=== PATIENT | female | born 1930 | race Caucasian/White ===

== ENCOUNTER 2017-08-21 14:41 | Inpatient (IN) | payer OTHER, MEDICARE ==
[~2017-08-21] VITALS: Ht 165.1 cm; Wt 64.9 kg
[~2017-08-21 14:41] MED LIST: COZ50 PO; FERR325E14 PO; FLOR250 PO; GABA100C PO; GLIP5TAB13 PO; METF1000 PO; METR500T1 PO; MIC5 PO; NOVR SUBQ; OMEP40EC1 PO; ORE25 PO; PRAV40TA1 PO
[2017-08-21 14:42] VITALS: BP 120/83
--- NOTE | 2017-08-21 14:55 | NUR ---
Patient wheelchair assisted to Bed1
[2017-08-21] MEDS ORDERED: NACL 0.9% 1,000 ML IV ONE ×3 (15:00→17:00)
--- NOTE | 2017-08-21 15:00 | NUR ---
PATIENT BIB FAMILY C/O GENERALIZED WEAKNESS x TODAY. FAMILY STATES THAT THEY OBSERVE PATIENT FEELING WEAK SINCE THIS MORNING. DENIES NVD. HX: HTN AND DM . AAOX4 WITH EVEN AND STEADY GAIT; LUNGS CLEAR BL; HR EVEN AND REGULAR; PT DENIES ANY FEVER, CP, SOB, OR COUGH AT THIS TIME; SKIN IS PINK/WARM/DRY; DENIES PAIN; VSS; BS 536 MG/DL.PATIENT POSITIONED FOR COMFORT; HOB ELEVATED; BEDRAILS UP X2; BED DOWN. ER MD MADE AWARE OF PT STATUS.
--- NOTE | 2017-08-21 15:20 | NUR ---
Patient being evaluated by physician at bedside.
[2017-08-21 15:31] LABS: BASOPHILS # (AUTO) 0.1 K/uL (0.00-0.22); BASOPHILS % (AUTO) 1.5 % (0.0-2.0); EOSINOPHILS # (AUTO) 0.3 K/uL (0-0.4); EOSINOPHILS % (AUTO) 3.7 % (0.0-4.0); HEMATOCRIT 31.8 % (36-48); HEMOGLOBIN 10.6 g/dL (12.0-16.0); LYMPHOCYTES # (AUTO) 2.2 K/uL (2.5-16.5); LYMPHOCYTES % (AUTO) 32.3 % (20.5-51.1); MEAN CORPUSCULAR HEMOGLOBIN 31 pg (27-31); MEAN CORPUSCULAR HGB CONC 33 g/dL (33-37); MEAN CORPUSCULAR VOLUME 94.1 fL (80-94); MONOCYTES # (AUTO) 0.3 K/uL (0.8-1.0); MONOCYTES % (AUTO) 4.1 % (1.7-9.3); NEUTROPHILS # (AUTO) 4.1 K/uL (1.8-7.7); NEUTROPHILS % (AUTO) 58.4 % (42.2-75.2); PLATELET COUNT (AUTO) 245 K/uL (140-450); RED BLOOD CELL COUNT(AUTO) 3.38 MIL/uL (4.20-5.40); RED CELL DISTRIBUTION WIDTH 12.1 % (11.6-13.7)
[2017-08-21 15:45] LABS: ACETONE, SERUM NEGATIVE (NEGATIVE)
[2017-08-21 15:52] LABS: ALBUMIN 2.9 g/dL (3.4-5.0); ANION GAP 13.4 (8-16); ASPARTATE AMINOTRANSFERASE 14 U/L (15-37); CARBON DIOXIDE 26.7 mmol/L (21-32); CHLORIDE 89 mmol/L (98-107); CREATININE 1.3 mg/dL (0.6-1.3); POTASSIUM 4.1 mmol/L (3.5-5.1); SODIUM SERUM 125 mmol/L (136-145); TOTAL BILIRUBIN 0.2 mg/dL (0.0-1.0); UREA NITROGEN, BLOOD 17 mg/dL (7-18)
[2017-08-21 15:54] LABS: GLUCOSE 577 mg/dL (74-106)
[2017-08-21] MEDS ORDERED: cefTRIAXone 1,000 MG VIAL ONE (16:33)
[2017-08-21 16:42] LABS: BILIRUBIN,URINE NEGATIVE (NEGATIVE); BLOOD, URINE NEGATIVE (NEGATIVE); LEUKOCYTE ESTERASE ,URINE NEGATIVE (NEGATIVE); NITRITE, URINE NEGATIVE (NEGATIVE); UGLUCOSE 3+ (NEGATIVE)
[2017-08-21 16:43] LABS: APPEARANCE,URINE CLEAR (CLEAR); COLOR,URINE STRAW (YELLOW)
--- NOTE | 2017-08-21 17:00 | NUR ---
PT IS RESTING IN BED, NO S/S OF DISTRESS, DENIES PAIN, VSS.
[2017-08-21] MEDS ORDERED: NACL 0.9% 1,000 ML IV SCH (17:36)
[2017-08-21] MEDS ORDERED: ONDANSETRON 4 MG/2 ML VIAL IVP PRN (17:40)
[2017-08-21] MEDS ORDERED: HYDROcodone/APAP 5/325 MG 1 TAB TAB PO PRN ×2 (17:40)
[2017-08-21] MEDS ORDERED: ACETAMINOPHEN 325 MG TAB PO PRN (17:40)
[2017-08-21] MEDS ORDERED: DEXTROSE 50% 50 ML SYR IVP PRN (17:45)
--- NOTE | 2017-08-21 18:20 | NUR ---
Patient will be admitted TELE. Will go to room 124B. Belongings list completed. Report to ANGELY VILLALOBOS AT BEDSIDE.
--- NOTE | 2017-08-21 18:20 | NUR ---
PATIENT ARRIVED ON UNIT VIA GURNEY FROM ER. PATIENT ALERT AND ABLE TO MAKE NEEDS KNOWN. GIBRALTARIAN SPEAKING. FAMILY AT BEDSIDE. PATIENT INCONTINENT CHANGED ROGER AND GOWN UPON ARRIVAL. PATIENT NOTED FALL RISK . IV TO RFA 22G. PATENT AND INTACT. CONTINUES WITH NS BOLUS. TO START NS @50ML/HR ONCE BOLUS COMPLETE.VSS. 133/77,97.4,70,O2 SAT 99% ON RA. RR 18, 0/10 PAIN. NO ACUTE DISTRESS NOTED. RESP EVEN AND UNLABORED. LUNG SOUNDS CLEAR. BOWEL SOUNDS ACTIVE X 4 .BLOOD GLUCOSE 330 UPON ARRIVAL . CALLED AND SPOKE TO DR SHEN REGARDING DIET ORDER FOR [facility] DIET. MRSA SWAB COLLECTED.FALL RISK PRECAUTIONS INITIATED. BED ALARM ON . DISCUSSED PLAN OF CARE WITH FAMILY VERBALIZED UNDERSTANDING AND AGREEMENT. CALL LIGHT WITHIN REACH. WILL CONT TO MONITOR.
[2017-08-21 18:28] LABS: CHOL/HDL RATIO 2.6 (1-4.5); THYROID STIMULATING HORMONE 2.49 uIU/mL (0.34-3.74)
[2017-08-21 18:49] LABS: ANION GAP 14.6 (8-16); CARBON DIOXIDE 25.3 mmol/L (21-32); CHLORIDE 98 mmol/L (98-107); CREATININE 1.1 mg/dL (0.6-1.3); GLUCOSE 362 mg/dL (74-106); POTASSIUM 3.9 mmol/L (3.5-5.1); SODIUM SERUM 134 mmol/L (136-145); UREA NITROGEN, BLOOD 14 mg/dL (7-18)
--- NOTE | 2017-08-21 19:30 | NUR ---
ENDORSED REPORT TO [employer] DIVISION MANAGER NURSE AT BEDSIDE FOR CONTINUITY OF CARE. PATIENT STABLE
[2017-08-21 20:00] VITALS: BP 118/68
--- NOTE | 2017-08-21 20:00 | NUR ---
A NEW IV IS INSERTED ON; LEFT HAND GAUGE #24
[2017-08-21] MEDS: BLOOD GLUCOSE MONITORING 1 DEV DEV FS SCH (20:40)
[2017-08-21] MEDS: INSULIN LISPRO SLIDING SCALE 100 UNITS/ML VIAL SUBQ PRN (20:40)
--- NOTE | 2017-08-21 21:00 | NUR ---
BLOOD SUGAR TEST 349COVERAGE WITH 8 UNITS SUB Q HUMALOG ON LEFT ARM FOLLOWING PROTOCOL
--- NOTE | 2017-08-21 21:30 | NUR ---
DREA MARIE IS HERE AND SEE THE PT
[2017-08-21] MEDS: GABAPENTIN 100 MG CAP PO SCH (22:24)
[2017-08-21] MEDS ORDERED: LORazepam 2 MG/ML VIAL IVP PRN (23:00)
--- NOTE | 2017-08-21 23:15 | NUR ---
PT CONFUSED PULL OUT IV AND A NEW IV IS INSERTED ON RT HAND GAUGE # 24
--- NOTE | 2017-08-21 23:20 | NUR ---
PT CONFUSED AND AGITATED DR SHEN POLO COACH WAS NOTIFY PT CONDITION AND ORDERS TO FOLLOW
[2017-08-22] VITALS: BP 93/50
[2017-08-22 00:48] LABS: ANION GAP 12.7 (8-16); CHLORIDE 105 mmol/L (98-107); CREATININE 0.9 mg/dL (0.6-1.3); GLUCOSE 66 mg/dL (74-106); POTASSIUM 3.7 mmol/L (3.5-5.1); SODIUM SERUM 140 mmol/L (136-145); UREA NITROGEN, BLOOD 12 mg/dL (7-18)
[2017-08-22] MEDS: BLOOD GLUCOSE MONITORING 1 DEV DEV FS SCH ×3 (01:15→08:09)
--- NOTE | 2017-08-22 01:30 | NUR ---
PT RESTING ON BED REPOSITIONED Q2H IV ON RT HAND INFUSING WELL BLOOD SUGAR TEST 71
--- NOTE | 2017-08-22 03:15 | NUR ---
PT CONFUSED TRYING TO GET OUT OF BED LINEN CHANGED PT INCONTINENT IV ON RT HAND INFUSING WELL ON TELEMETRY SR
[2017-08-22 04:00] VITALS: BP 118/68
--- NOTE | 2017-08-22 04:15 | NUR ---
PT RESTING ON BED CONFUSED BLOOD SUGAR TEST 139
--- NOTE | 2017-08-22 06:17 | NUR ---
PT CONFUSED FOLLOW COMANDS ON TELEMETRY SR REPOSITIONED Q2H, LINEN CHANGED
--- NOTE | 2017-08-22 07:20 | NUR ---
RECEIVED REPORT FROM MEDICAL AFFAIRS SPECIALIST RN. PATIENT IS CONFUSED AND NEEDS FREQUENT REINFORCEMENT. NO SIGNS AND SYMPTOMS OF ACUTE DISTRESS NOTED AT THIS TIME. HAS IV TO THE RIGHT HAND 24G, INFUSING NS AT 50 ML/HR. INFUSING WELL. HAS SOFT MITTENS ON DUE TO PULLING OUT IV A FEW TIMES. DISCUSSED PLAN OF CARE WITH PATIENT AND REINFORCEMENT WAS NEEDED. FALL PRECAUTIONS IN PLACE, BED ALARM ON, BED IN LOWEST POSITION, SIDE RAILS UP X3, CALL LIGHT WITHIN REACH. WILL CONTINUE TO MONITOR.
[2017-08-22 07:26] LABS: BASOPHILS # (AUTO) 0.3 K/uL (0.00-0.22); BASOPHILS % (AUTO) 4.2 % (0.0-2.0); EOSINOPHILS # (AUTO) 0.3 K/uL (0-0.4); EOSINOPHILS % (AUTO) 3.3 % (0.0-4.0); HEMATOCRIT 33.8 % (36-48); HEMOGLOBIN 11.4 g/dL (12.0-16.0); LYMPHOCYTES # (AUTO) 2.5 K/uL (2.5-16.5); LYMPHOCYTES % (AUTO) 31.3 % (20.5-51.1); MEAN CORPUSCULAR HEMOGLOBIN 32 pg (27-31); MEAN CORPUSCULAR HGB CONC 34 g/dL (33-37); MEAN CORPUSCULAR VOLUME 94.7 fL (80-94); MONOCYTES # (AUTO) 0.3 K/uL (0.8-1.0); NEUTROPHILS # (AUTO) 4.7 K/uL (1.8-7.7); NEUTROPHILS % (AUTO) 57.2 % (42.2-75.2); PLATELET COUNT (AUTO) 236 K/uL (140-450); RED BLOOD CELL COUNT(AUTO) 3.57 MIL/uL (4.20-5.40); RED CELL DISTRIBUTION WIDTH 12.3 % (11.6-13.7); WHITE BLOOD COUNT (AUTO) 8.1 K/uL (4.8-10.8)
[2017-08-22 07:41] LABS: ALBUMIN 2.9 g/dL (3.4-5.0); ASPARTATE AMINOTRANSFERASE 15 U/L (15-37); CARBON DIOXIDE 27.4 mmol/L (21-32); CHLORIDE 101 mmol/L (98-107); CREATININE 0.9 mg/dL (0.6-1.3); GLUCOSE 194 mg/dL (74-106); POTASSIUM 3.4 mmol/L (3.5-5.1); SODIUM SERUM 136 mmol/L (136-145); TOTAL BILIRUBIN 0.5 mg/dL (0.0-1.0); UREA NITROGEN, BLOOD 10 mg/dL (7-18)
[2017-08-22 07:42] LABS: ANION GAP 12.7 (8-16); CARBON DIOXIDE 25.7 mmol/L (21-32); CHLORIDE 101 mmol/L (98-107); CREATININE 0.9 mg/dL (0.6-1.3); GLUCOSE 198 mg/dL (74-106); POTASSIUM 3.4 mmol/L (3.5-5.1); SODIUM SERUM 136 mmol/L (136-145); UREA NITROGEN, BLOOD 11 mg/dL (7-18)
[2017-08-22 08:00] VITALS: BP 130/65
[2017-08-22] MEDS ORDERED: SULF-58 PO (08:15)
[2017-08-22] MEDS ORDERED: PRAV40TA1 PO (08:15)
--- NOTE | 2017-08-22 08:36 | NUR ---
PATIENT HAS BEEN SCREENED AND CATEGORIZED MODERATE RISK. PATIENT WILL BE SEEN WITHIN 3-5 DAYS OF ADMISSION. 08/24/17 TO 08/26/[address], [facility]
[2017-08-22] MEDS: GABAPENTIN 100 MG CAP PO SCH (08:47)
[2017-08-22] MEDS: INSULIN LISPRO SLIDING SCALE 100 UNITS/ML VIAL SUBQ PRN (08:53)
--- NOTE | 2017-08-22 10:00 | NUR ---
I WAS STANDING NEXT TO DR IBANEZ WHEN HE CALLED PATIENTS DAUGHTER. PER DR IBANEZ HE SPOKE WITH PATIENTS DAUGHTER MIGUEL, AND LET HER KNOW THAT SHE IS STABLE TO BE DISCHARGED. HE ASKED INFORMED HER THAT SHE CAN TAKE HER HOME MEDICATIONS, AND THAT HE ADJUSTED ONE OF THE MEDICATIONS. HE ASKED MIGUEL IF SHE WANTED FRONT OFFICE MANAGER TO GET INVOLVED IN PLACING HER IN HOSPICE. PATIENTS DAUGHTER REFUSES THE SERVICES AT THIS TIME. WILL FOLLOW THROUGH WITH DISCHARGE ORDER.
--- NOTE | 2017-08-22 10:45 | NUR ---
DISCHARGE ORDER IS IN PLACE. DAUGHTER IS AT THE BEDSIDE AND EXPLAINED DISCHARGE INSTRUCTIONS TO HER. SHE STATED THAT SHE IS TAKING HER MOTHER TO HER PRIMARY CARE PHYSICIAN TODAY. EXPLAINED SIGNS AND SYMPTOMS TO LOOK OUT FOR AND EXPLAINED INSULIN SLIDING SCALE. SHE VERBALIZED UNDERSTANDING. DISCONTINUED PATIENTS NORMAL SALINE FLUID AND IV SITE AT THIS TIME. SITE IS CLEAN AND DRY, CATHETER INTACT. ALL BELONGINGS HAVE BEEN COLLECTED. PATIENT HAS NO SIGNS AND SYMPTOMS OF ACUTE DISTRESS NOTED AT THIS TIME. DAUGHTER BROUGHT PATIENTS WHEEL CHAIR, WILL WALK OUT WITH THEM.
--- NOTE | 2017-08-25 07:51 | NUR ---
RETRO FAXED ER REPORT, H&P AND DISCHARGE SUMMARY TO [facility] [phone] PHONE TRINA [phone]
== END 2017-08-22 10:45 | disposition home or self-care (01) | DRG 420 ==
LOC: MED 14:41 → MTU 17:42
PROVIDERS: ADMIT Hospitalist; ATTEND Hospitalist
DX: E11.00 Type 2 diabetes mellitus with hyperosmolarity without nonketotic hyperglycemic-hyperosmolar coma (NKHHC) (principal); E11.65 Type 2 diabetes mellitus with hyperglycemia; F03.90 Unspecified dementia, unspecified severity, without behavioral disturbance, psychotic disturbance, mood disturbance, and anxiety; E44.1 Mild protein-calorie malnutrition; E86.9 Volume depletion, unspecified; N39.0 Urinary tract infection, site not specified; E86.0 Dehydration; I10 Essential (primary) hypertension; E78.5 Hyperlipidemia, unspecified; Z91.19 Patient's noncompliance with other medical treatment and regimen; Z79.4 Long term (current) use of insulin
CPT/HCPCS: 36415; 36600; 71045; 80048; 80053; 81003; 82009; 82550; 82553; 82803; 82948; 83036; 83605; 83874; 83880; 84443; 84484; 85025; 85610; 85730; 87040; 87081; 87086; 93005; 96361; 96365; 99285; C1758; J0696; J1644; J1815; J2060; J7030; J7060; Q0092

== ENCOUNTER 2017-12-01 18:24 | Inpatient (IN) | payer OTHER, MEDICARE ==
[~2017-12-01] VITALS: Ht 152.4 cm; Wt 54.4 kg
[~2017-12-01 18:24] MED LIST changes: -METF1000 PO; -METR500T1 PO; -MIC5 PO; -OMEP40EC1 PO; -ORE25 PO; +SULF-58 PO
[2017-12-01 18:41] VITALS: BP 123/73
[2017-12-01] MEDS ORDERED: NACL 0.9% 1,000 ML IV ONE ×2 (18:50→20:35)
[2017-12-01] MEDS ORDERED: ONDANSETRON 4 MG/2 ML VIAL IVP ONE (18:50)
[2017-12-01 19:35] LABS: BASOPHILS # (AUTO) 0.1 K/uL (0.00-0.22); BASOPHILS % (AUTO) 1.3 % (0.0-2.0); EOSINOPHILS # (AUTO) 0.3 K/uL (0-0.4); EOSINOPHILS % (AUTO) 4.5 % (0.0-4.0); HEMATOCRIT 34.7 % (36-48); HEMOGLOBIN 11.7 g/dL (12.0-16.0); LYMPHOCYTES # (AUTO) 2.6 K/uL (2.5-16.5); LYMPHOCYTES % (AUTO) 37.5 % (20.5-51.1); MEAN CORPUSCULAR HEMOGLOBIN 31 pg (27-31); MEAN CORPUSCULAR HGB CONC 34 g/dL (33-37); MEAN CORPUSCULAR VOLUME 90.7 fL (80-94); MONOCYTES # (AUTO) 0.3 K/uL (0.8-1.0); MONOCYTES % (AUTO) 4.7 % (1.7-9.3); NEUTROPHILS # (AUTO) 3.6 K/uL (1.8-7.7); PLATELET COUNT (AUTO) 388 K/uL (140-450); RED BLOOD CELL COUNT(AUTO) 3.82 MIL/uL (4.20-5.40); RED CELL DISTRIBUTION WIDTH 12.7 % (11.6-13.7)
[2017-12-01 19:52] LABS: ALBUMIN 3.7 g/dL (3.4-5.0); ANION GAP 14.3 (8-16); ASPARTATE AMINOTRANSFERASE 18 U/L (15-37); CARBON DIOXIDE 22.3 mmol/L (21-32); CHLORIDE 89 mmol/L (98-107); CREATININE 1.8 mg/dL (0.6-1.3); GLUCOSE 119 mg/dL (74-106); POTASSIUM 4.6 mmol/L (3.5-5.1); TOTAL BILIRUBIN 0.3 mg/dL (0.0-1.0); UREA NITROGEN, BLOOD 24 mg/dL (7-18)
[2017-12-01 19:56] LABS: SODIUM SERUM 121 mmol/L (136-145)
[2017-12-01 20:09] LABS: PROTHROMBIN TIME 12.4 secs (10.8-13.4)
[2017-12-01 20:16] LABS: APPEARANCE,URINE SL CLOUDY (CLEAR); BILIRUBIN,URINE NEGATIVE (NEGATIVE); BLOOD, URINE 2+ (NEGATIVE); COLOR,URINE YELLOW (YELLOW); LEUKOCYTE ESTERASE ,URINE 2+ (NEGATIVE); NITRITE, URINE NEGATIVE (NEGATIVE); UGLUCOSE NEGATIVE (NEGATIVE)
[2017-12-01 20:26] LABS: RBC,URINE 3-10 (FEW) /HPF (0-5); WBC,URINE 20-60 /HPF (0-5)
[2017-12-01] MEDS ORDERED: LEVOFLOXACIN 750 MG/D5W PREMIX 150 ML IV ONE (20:35)
[2017-12-01] MEDS ORDERED: DEXTROSE 50% 50 ML SYR IVP PRN (20:55)
[2017-12-01] MEDS ORDERED: ONDANSETRON 4 MG/2 ML VIAL IVP PRN (20:55)
[2017-12-01] MEDS ORDERED: ACETAMINOPHEN 325 MG TAB PO PRN (20:55)
[2017-12-01] MEDS ORDERED: HYDROcodone/APAP 5/325 MG 1 TAB TAB PO PRN ×2 (20:55)
[2017-12-01] MEDS: BLOOD GLUCOSE MONITORING 1 DEV DEV FS SCH (21:00)
[2017-12-01] MEDS ORDERED: DEXT 5% / NACL 0.45% 1,000 ML IV SCH (22:00)
[2017-12-01 22:41] LABS: ANION GAP 12.2 (8-16); CARBON DIOXIDE 22.3 mmol/L (21-32); CHLORIDE 94 mmol/L (98-107); CREATININE 1.6 mg/dL (0.6-1.3); GLUCOSE 146 mg/dL (74-106); POTASSIUM 4.5 mmol/L (3.5-5.1); UREA NITROGEN, BLOOD 21 mg/dL (7-18)
[2017-12-01] MEDS: GABAPENTIN 100 MG CAP PO SCH (22:41)
[2017-12-01 22:55] LABS: SODIUM SERUM 124 mmol/L (136-145)
[2017-12-02 01:32] LABS: ANION GAP 12.4 (8-16); CHLORIDE 94 mmol/L (98-107); CREATININE 1.5 mg/dL (0.6-1.3); GLUCOSE 133 mg/dL (74-106); POTASSIUM 4.4 mmol/L (3.5-5.1); SODIUM SERUM 126 mmol/L (136-145); UREA NITROGEN, BLOOD 19 mg/dL (7-18)
[2017-12-02 04:00] VITALS: BP 120/67
[2017-12-02 04:33] LABS: ANION GAP 10.7 (8-16); CARBON DIOXIDE 24.5 mmol/L (21-32); CHLORIDE 95 mmol/L (98-107); CREATININE 1.5 mg/dL (0.6-1.3); GLUCOSE 146 mg/dL (74-106); POTASSIUM 4.2 mmol/L (3.5-5.1); SODIUM SERUM 126 mmol/L (136-145); UREA NITROGEN, BLOOD 17 mg/dL (7-18)
[2017-12-02] MEDS: BLOOD GLUCOSE MONITORING 1 DEV DEV FS SCH ×4 (07:01→21:34)
[2017-12-02 08:00] VITALS: BP 96/69
[2017-12-02 08:14] LABS: BASOPHILS # (AUTO) 0.1 K/uL (0.00-0.22); BASOPHILS % (AUTO) 1.2 % (0.0-2.0); EOSINOPHILS # (AUTO) 0.4 K/uL (0-0.4); EOSINOPHILS % (AUTO) 6.6 % (0.0-4.0); HEMATOCRIT 32.9 % (36-48); HEMOGLOBIN 11.3 g/dL (12.0-16.0); LYMPHOCYTES # (AUTO) 2.7 K/uL (2.5-16.5); LYMPHOCYTES % (AUTO) 47.2 % (20.5-51.1); MEAN CORPUSCULAR HEMOGLOBIN 31 pg (27-31); MEAN CORPUSCULAR HGB CONC 35 g/dL (33-37); MEAN CORPUSCULAR VOLUME 90.3 fL (80-94); MONOCYTES # (AUTO) 0.3 K/uL (0.8-1.0); MONOCYTES % (AUTO) 5.1 % (1.7-9.3); NEUTROPHILS # (AUTO) 2.3 K/uL (1.8-7.7); NEUTROPHILS % (AUTO) 39.9 % (42.2-75.2); PLATELET COUNT (AUTO) 350 K/uL (140-450); RED BLOOD CELL COUNT(AUTO) 3.64 MIL/uL (4.20-5.40); RED CELL DISTRIBUTION WIDTH 12.9 % (11.6-13.7); WHITE BLOOD COUNT (AUTO) 5.8 K/uL (4.8-10.8)
[2017-12-02 08:47] LABS: ALBUMIN 3.1 g/dL (3.4-5.0); ANION GAP 10.9 (8-16); ASPARTATE AMINOTRANSFERASE 16 U/L (15-37); CARBON DIOXIDE 23.4 mmol/L (21-32); CHLORIDE 95 mmol/L (98-107); CREATININE 1.4 mg/dL (0.6-1.3); GLUCOSE 173 mg/dL (74-106); POTASSIUM 4.3 mmol/L (3.5-5.1); SODIUM SERUM 125 mmol/L (136-145); TOTAL BILIRUBIN 0.3 mg/dL (0.0-1.0); UREA NITROGEN, BLOOD 15 mg/dL (7-18)
[2017-12-02] MEDS: ASPIRIN 81 MG TAB.CHEW PO SCH (09:38)
[2017-12-02] MEDS: GABAPENTIN 100 MG CAP PO SCH ×2 (09:38→21:31)
[2017-12-02] MEDS: NACL 0.9% 1,000 ML IV SCH (11:49)
[2017-12-02 12:00] VITALS: BP 96/41
[2017-12-02] MEDS: INSULIN LISPRO SLIDING SCALE 100 UNITS/ML VIAL SUBQ PRN (12:06)
[2017-12-02] MEDS ORDERED: hydrOXYzine HCL 25 MG TAB PO PRN (13:40)
[2017-12-02] MEDS ORDERED: ORE25 PO (14:48)
[2017-12-02] MEDS ORDERED: METF1000 PO (14:48)
[2017-12-02 16:00] VITALS: BP 94/61
[2017-12-02] MEDS ORDERED: glipiZIDE 10 MG TAB PO SCH (16:30)
[2017-12-02 20:00] VITALS: BP 114/59
[2017-12-03] VITALS: BP 98/61
[2017-12-03] MEDS: NACL 0.9% 1,000 ML IV SCH ×2 (01:47→14:20)
[2017-12-03 04:00] VITALS: BP 95/55
[2017-12-03] MEDS: PANTOPRAZOLE 40 MG TABEC PO SCH (05:43)
[2017-12-03] MEDS: BLOOD GLUCOSE MONITORING 1 DEV DEV FS SCH ×4 (05:47→21:16)
[2017-12-03 08:00] VITALS: BP 153/63
[2017-12-03 09:00] LABS: BASOPHILS # (AUTO) 0.1 K/uL (0.00-0.22); BASOPHILS % (AUTO) 1.2 % (0.0-2.0); EOSINOPHILS # (AUTO) 0.5 K/uL (0-0.4); EOSINOPHILS % (AUTO) 8.6 % (0.0-4.0); HEMATOCRIT 31.8 % (36-48); HEMOGLOBIN 10.9 g/dL (12.0-16.0); LYMPHOCYTES # (AUTO) 2.6 K/uL (2.5-16.5); LYMPHOCYTES % (AUTO) 47.2 % (20.5-51.1); MEAN CORPUSCULAR HEMOGLOBIN 31 pg (27-31); MEAN CORPUSCULAR HGB CONC 34 g/dL (33-37); MEAN CORPUSCULAR VOLUME 90.8 fL (80-94); MONOCYTES # (AUTO) 0.3 K/uL (0.8-1.0); MONOCYTES % (AUTO) 5.4 % (1.7-9.3); NEUTROPHILS # (AUTO) 2.1 K/uL (1.8-7.7); NEUTROPHILS % (AUTO) 37.6 % (42.2-75.2); PLATELET COUNT (AUTO) 312 K/uL (140-450); RED CELL DISTRIBUTION WIDTH 12.9 % (11.6-13.7); WHITE BLOOD COUNT (AUTO) 5.5 K/uL (4.8-10.8)
[2017-12-03] MEDS ORDERED: metFORMIN 500 MG TAB PO SCH (09:00)
[2017-12-03] MEDS ORDERED: HYDROCHLOROTHIAZIDE 25 MG TAB PO SCH (09:00)
[2017-12-03] MEDS ORDERED: LOSARTAN 50 MG TAB PO SCH (09:00)
[2017-12-03] MEDS: ASPIRIN 81 MG TAB.CHEW PO SCH (09:08)
[2017-12-03] MEDS: GABAPENTIN 100 MG CAP PO SCH ×2 (09:08→21:21)
[2017-12-03] MEDS: FERROUS SULFATE 325 MG TABEC PO SCH (09:09)
[2017-12-03 09:25] LABS: ALBUMIN 2.9 g/dL (3.4-5.0); ANION GAP 11.9 (8-16); ASPARTATE AMINOTRANSFERASE 12 U/L (15-37); CARBON DIOXIDE 22.5 mmol/L (21-32); CHLORIDE 98 mmol/L (98-107); CREATININE 1.3 mg/dL (0.6-1.3); GLUCOSE 198 mg/dL (74-106); POTASSIUM 4.4 mmol/L (3.5-5.1); SODIUM SERUM 128 mmol/L (136-145); TOTAL BILIRUBIN 0.3 mg/dL (0.0-1.0); UREA NITROGEN, BLOOD 11 mg/dL (7-18)
[2017-12-03 12:00] VITALS: BP 111/45
[2017-12-03] MEDS: INSULIN LISPRO SLIDING SCALE 100 UNITS/ML VIAL SUBQ PRN ×2 (13:13→17:18)
[2017-12-03 16:00] VITALS: BP 116/57
[2017-12-03 20:00] VITALS: BP 108/57
[2017-12-03] MEDS ORDERED: LEVOFLOXACIN 250 MG/D5 PREMIX 50 ML IV SCH (21:00)
[2017-12-04] VITALS: BP 108/48
[2017-12-04] MEDS: NACL 0.9% 1,000 ML IV SCH (03:40)
[2017-12-04 04:00] VITALS: BP 121/66
[2017-12-04] MEDS: PANTOPRAZOLE 40 MG TABEC PO SCH (06:09)
[2017-12-04] MEDS: BLOOD GLUCOSE MONITORING 1 DEV DEV FS SCH ×3 (06:09→11:33)
[2017-12-04 06:38] LABS: BASOPHILS # (AUTO) 0.1 K/uL (0.00-0.22); BASOPHILS % (AUTO) 1.8 % (0.0-2.0); EOSINOPHILS # (AUTO) 0.5 K/uL (0-0.4); EOSINOPHILS % (AUTO) 8.2 % (0.0-4.0); HEMATOCRIT 31.3 % (36-48); HEMOGLOBIN 10.4 g/dL (12.0-16.0); LYMPHOCYTES # (AUTO) 2.7 K/uL (2.5-16.5); LYMPHOCYTES % (AUTO) 48.1 % (20.5-51.1); MEAN CORPUSCULAR HEMOGLOBIN 31 pg (27-31); MEAN CORPUSCULAR HGB CONC 33 g/dL (33-37); MEAN CORPUSCULAR VOLUME 92.7 fL (80-94); MONOCYTES # (AUTO) 0.3 K/uL (0.8-1.0); MONOCYTES % (AUTO) 5.4 % (1.7-9.3); NEUTROPHILS % (AUTO) 36.5 % (42.2-75.2); PLATELET COUNT (AUTO) 302 K/uL (140-450); RED BLOOD CELL COUNT(AUTO) 3.38 MIL/uL (4.20-5.40); WHITE BLOOD COUNT (AUTO) 5.5 K/uL (4.8-10.8)
[2017-12-04 07:34] LABS: ALBUMIN 2.9 g/dL (3.4-5.0); ANION GAP 13.2 (8-16); ASPARTATE AMINOTRANSFERASE 17 U/L (15-37); CHLORIDE 100 mmol/L (98-107); CREATININE 1.2 mg/dL (0.6-1.3); GLUCOSE 143 mg/dL (74-106); POTASSIUM 4.2 mmol/L (3.5-5.1); SODIUM SERUM 131 mmol/L (136-145); TOTAL BILIRUBIN 0.3 mg/dL (0.0-1.0); UREA NITROGEN, BLOOD 11 mg/dL (7-18)
[2017-12-04 08:00] VITALS: BP 134/71
[2017-12-04] MEDS: ASPIRIN 81 MG TAB.CHEW PO SCH (09:41)
[2017-12-04] MEDS: GABAPENTIN 100 MG CAP PO SCH (09:41)
[2017-12-04] MEDS: FERROUS SULFATE 325 MG TABEC PO SCH (09:41)
[2017-12-04] MEDS: INSULIN LISPRO SLIDING SCALE 100 UNITS/ML VIAL SUBQ PRN (11:44)
[2017-12-04 12:00] VITALS: BP 114/63
[2017-12-04] MEDS ORDERED: metFORMIN 500 MG TAB PO SCH (17:00)
== END 2017-12-04 13:45 | disposition home or self-care (01) | DRG 469 ==
LOC: MED 18:24 → MTU 21:07
PROVIDERS: ADMIT Hospitalist; ATTEND Hospitalist
DX: N17.9 Acute kidney failure, unspecified (principal); G93.41 Metabolic encephalopathy; E11.42 Type 2 diabetes mellitus with diabetic polyneuropathy; N39.0 Urinary tract infection, site not specified; E87.1 Hypo-osmolality and hyponatremia; G30.9 Alzheimer's disease, unspecified; F02.80 Dementia in other diseases classified elsewhere, unspecified severity, without behavioral disturbance, psychotic disturbance, mood disturbance, and anxiety; N28.9 Disorder of kidney and ureter, unspecified; E86.0 Dehydration; E86.1 Hypovolemia; D64.9 Anemia, unspecified; J06.9 Acute upper respiratory infection, unspecified; I10 Essential (primary) hypertension; Z79.899 Other long term (current) drug therapy; Z83.3 Family history of diabetes mellitus
CPT/HCPCS: 36415; 71045; 80048; 80053; 81001; 82948; 83036; 83605; 83880; 83930; 83935; 84295; 84300; 84443; 84484; 85025; 85610; 85730; 87040; 87081; 87086; 87186; 93005; 96361; 96365; 96375; 97110; 97116; 97140; 97530; 99285; C1758; J1644; J1815; J1956; J2405; J7030; Q0092